=== PATIENT | male | born 1970 | race Caucasian/White ===

== ENCOUNTER → 2025-02-14 | Outpatient (CLI) | payer BC | LOC: M WUC 12:26 | PROVIDERS: ATTEND Nurse Practitioner Family | DX: M79.672 Pain in left foot (principal) ==

== ENCOUNTER → 2025-05-12 | Outpatient (CLI) | payer BC | LOC: M PLAIMG 15:44 | PROVIDERS: ATTEND Physician Assistant | DX: S93.602D Unspecified sprain of left foot, subsequent encounter (principal); S92.322A Displaced fracture of second metatarsal bone, left foot, initial encounter for closed fracture; X58.XXXA Exposure to other specified factors, initial encounter; Y92.9 Unspecified place or not applicable; Y93.9 Activity, unspecified; Y99.9 Unspecified external cause status ==